=== PATIENT | male | born 1955 | race Caucasian/White ===

== ENCOUNTER 2017-05-07 15:48 | Emergency (ER) | payer OTHER ==
--- NOTE | 2017-05-07 17:07 | ED CLINICAL REPORT ---
Clinical Report - Physicians/Mid Levels [facility] [address] [place] [address] 05/07/2017 15:49 Patient: SILVESTRE ARELLANO V *This is a preliminary document and is subject to change Time Seen: 15:56. Arrived- By private vehicle. Historian- patient. HISTORY OF PRESENT ILLNESS Chief Complaint: VOMITING. Theresa Thomas MD
--- NOTE | 2017-05-07 17:07 | ED CLINICAL REPORT ---
Clinical Report - Physicians/Mid Levels [facility] [address] [address] 05/07/2017 15:49 Patient: SILVESTRE ARELLANO V *This is a preliminary document and is subject to change Time Seen: 15:56. Arrived- By private vehicle. Historian- patient. HISTORY OF PRESENT ILLNESS Chief Complaint: VOMITING. Theresa Thomas MD
--- NOTE | 2017-05-07 17:07 | ED NURSING NOTES ---
Clinical Report - Nurses [facility] [address] [place] [address] 05/07/2017 15:49 Patient: SILVESTRE ARELLANO V TRIAGE Triage time 16:04. Acuity: LEVEL 3. Chief Complaint: ABDOMINAL PAIN and NAUSEA and (chronic constipation. Seen at [facility] on sat, unable to drink whole thing. Had a small BM.). Alert. No acute distress. SEPSIS SCREEN: Sepsis Screen: negative. Negative (no infection suspected/documented). --16:11 Debi Alatorre R.N. 16:03 05/07/17. BP: 132/99. HR: 84. RR: 20. O2 saturation: 100%. Temp: 99.1 F. Pain level now: 02/06. --16:11 Debi Alatorre R.N. 16:03 05/07/17. BP: 132/99. HR: 84. RR: 20. O2 saturation: 100%. Temp: 99.1 F. Pain level now: 02/06. --16:11 Debi Alatorre R.N. Weight: 65.7 kg stated. Height/Length: 67 inches Per Patient. BMI: 22.7. --16:09 Dbei Alatorre R.N. Medications Baclofen 20 mg 4 times a day. Oxycodone-Acetaminophen Oral 30 mg, 6 daily. --16:06 Debi Alatorre R.N. Lisinopril Oral 5 mg, daily. --16:07 Debi Alatorre R.N. Atorvastatin Calcium Oral 10 mg, daily. --16:07 Debi Alatorre R.N. Allergies No Known Drug Allergy. --16:06 Debi Alatorre R.N. History Arrived by private vehicle. Historian: patient. Primary physician (gary). This started just prior to arrival. Onset. (3 - 4 days ago). He has had nausea and abdominal pain. The pain is described as located in the LLQ and lower abdomen and associated with nausea. No vomiting or diarrhea. 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 PAST MEDICAL HX: Immunizations: status is unknown. SOCIAL HX: Smoker- current status unknown. No alcohol use or drug use. FALL RISK ASSESSMENT: Fall risk assessment completed. No fall risk identified. NUTRITIONAL RISK ASSESSMENT: The nutritional risk assessment revealed no deficiencies. LEARNING NEEDS ASSESSMENT: The learning needs assessment revealed no barriers. FUNCTIONAL ASSESSMENT: Functional assessment performed: uses wheelchair, walker and cane. SKIN INTEGRITY ASSESSMENT: Skin integrity risk assessment completed. No skin integrity risk identified. --16:11 Debi Alatorre R.N. PROBLEMS: Abdominal Pain. Constipation. Pneumothorax x2. Broken neck/quadraplegic. --16:08 Debi Alatorre R.N. ADDITIONAL SURGERIES: Neck Surgery. --16:08 Debi Alatorre R.N. Interventions ID band on patient. To room. --16:11 Debi Alatorre R.N. PHYSICAL ASSESSMENT To room via wheelchair. Patient gowned. GENERAL / NEURO / PSYCH: Alert. Oriented X 4. Appears in pain and anxious. HEENT: Mucous membranes are pink. RESPIRATORY: Respirations not labored. CVS: Capillary refill less than 2 seconds. GI / : Abdominal tenderness in the left lower quadrant and lower abdomen. SKIN: Skin is warm and dry. --16:11 Debi Alatorre R.N. NURSING PROGRESS NOTES Patient gowned. Head of bed elevated. Two patient identifiers checked. Call light placed in reach. Side rails up x 2. Bed placed in lowest position. Brakes of bed on. Patient ready for evaluation. --16:11 Debi Alatorre R.N. DISPOSITION / DISCHARGE 17:10. The patient left the Emergency Department without being seen by a physician; (Eloped). The patient appears to be alert, oriented x4, coherent and in no acute distress. Gown found on bed. Patient paged once with no response. The patient left the Emergency Department via private vehicle. --21:35 Debi Alatorre R.N. 16:03 05/07/17. BP: 132/99. HR: 84. RR: 20. O2 saturation: 100%. Temp: 99.1 F. Pain level now: 10. --21:35 Debi Alatorre R.N. Locked/Released at 05/07/2017 21:37 by Debi Alatorre R.N.
--- NOTE | 2017-05-07 17:07 | ED NURSING NOTES ---
Clinical Report - Nurses [facility] [address] [place] [place] [address] 05/07/2017 15:49 Patient: SILVESTRE ARELLANO V TRIAGE Triage time 16:04. Acuity: LEVEL 3. Chief Complaint: ABDOMINAL PAIN and NAUSEA and (chronic constipation. Seen at [facility] on sat, unable to drink whole thing. Had a small BM.). Alert. No acute distress. SEPSIS SCREEN: Sepsis Screen: negative. Negative (no infection suspected/documented). --16:11 Debi Alatorre R.N. 16:03 05/07/17. BP: 132/99. HR: 84. RR: 20. O2 saturation: 100%. Temp: 99.1 F. Pain level now: 02/06. --16:11 Debi Alatorre R.N. 16:03 05/07/17. BP: 132/99. HR: 84. RR: 20. O2 saturation: 100%. Temp: 99.1 F. Pain level now: 02/06. --16:11 Debi Alatorre R.N. Weight: 65.7 kg stated. Height/Length: 67 inches Per Patient. BMI: 22.7. --16:09 Debi Alatorre R.N. Medications Baclofen 20 mg 4 times a day. Oxycodone-Acetaminophen Oral 30 mg, 6 daily. --16:06 Debi Alatorre R.N. Lisinopril Oral 5 mg, daily. --16:07 Debi Alatorre R.N. Atorvastatin Calcium Oral 10 mg, daily. --16:07 Debi Alatorre R.N. Allergies No Known Drug Allergy. --16:06 Debi Alatorre R.N. History Arrived by private vehicle. Historian: patient. Primary physician (gary). This started just prior to arrival. Onset. (3 - 4 days ago). He has had nausea and abdominal pain. The pain is described as located in the LLQ and lower abdomen and associated with nausea. No vomiting or diarrhea. 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 PAST MEDICAL HX: Immunizations: status is unknown. SOCIAL HX: Smoker- current status unknown. No alcohol use or drug use. FALL RISK ASSESSMENT: Fall risk assessment completed. No fall risk identified. NUTRITIONAL RISK ASSESSMENT: The nutritional risk assessment revealed no deficiencies. LEARNING NEEDS ASSESSMENT: The learning needs assessment revealed no barriers. FUNCTIONAL ASSESSMENT: Functional assessment performed: uses wheelchair, walker and cane. SKIN INTEGRITY ASSESSMENT: Skin integrity risk assessment completed. No skin integrity risk identified. --16:11 Debi Alatorre R.N. PROBLEMS: Abdominal Pain. Constipation. Pneumothorax x2. Broken neck/quadraplegic. --16:08 Debi Alatorre R.N. ADDITIONAL SURGERIES: Neck Surgery. --16:08 Debi Alatorre R.N. Interventions ID band on patient. To room. --16:11 Debi Alatorre R.N. PHYSICAL ASSESSMENT To room via wheelchair. Patient gowned. GENERAL / NEURO / PSYCH: Alert. Oriented X 4. Appears in pain and anxious. HEENT: Mucous membranes are pink. RESPIRATORY: Respirations not labored. CVS: Capillary refill less than 2 seconds. GI / : Abdominal tenderness in the left lower quadrant and lower abdomen. SKIN: Skin is warm and dry. --16:11 Debi Alatorre R.N. NURSING PROGRESS NOTES Patient gowned. Head of bed elevated. Two patient identifiers checked. Call light placed in reach. Side rails up x 2. Bed placed in lowest position. Brakes of bed on. Patient ready for evaluation. --16:11 Debi Alatorre R.N. DISPOSITION / DISCHARGE 17:10. The patient left the Emergency Department without being seen by a physician; (Eloped). The patient appears to be alert, oriented x4, coherent and in no acute distress. Gown found on bed. Patient paged once with no response. The patient left the Emergency Department via private vehicle. --21:35 Debi Alatorre R.N. 16:03 05/07/17. BP: 132/99. HR: 84. RR: 20. O2 saturation: 100%. Temp: 99.1 F. Pain level now: 10. --21:35 Debi Alatorre R.N. Locked/Released at 05/07/2017 21:37 by Debi Alatorre R.N.
--- NOTE | 2017-05-07 21:37 | ED MED RECONCILIATION SUMMARY ---
Patient: SILVESTRE ARELLANO V Medication Reconciliation Report [facility] VisitID: [id number] [address] [place] [address] 61y, M Registration Date/Time: 05/07/2017 Weight: 65.7 kg Height/Length: 67 in. BMI: 22.7 ALLERGIES: No Known Drug Allergy The patient's Home Medications are listed below: THE FOLLOWING MEDICATIONS NEED TO BE RECONCILED: Atorvastatin Calcium Oral 10 mg, daily Baclofen 20 mg 4 times a day Lisinopril Oral 5 mg, daily Oxycodone-Acetaminophen Oral 30 mg, 6 daily The source(s) of the original Home Medication information: Not obtained. The following Medications were given to the patient in the Emergency Department: None. The following Medications were prescribed to the patient: None.
--- NOTE | 2017-05-07 21:37 | ED MED RECONCILIATION SUMMARY ---
Patient: SILVESTRE ARELLANO V Medication Reconciliation Report [facility] VisitID: [id number] [address] [place] [address] 61y, M Registration Date/Time: 05/07/2017 Weight: 65.7 kg Height/Length: 67 in. BMI: 22.7 ALLERGIES: No Known Drug Allergy The patient's Home Medications are listed below: THE FOLLOWING MEDICATIONS NEED TO BE RECONCILED: Atorvastatin Calcium Oral 10 mg, daily Baclofen 20 mg 4 times a day Lisinopril Oral 5 mg, daily Oxycodone-Acetaminophen Oral 30 mg, 6 daily The source(s) of the original Home Medication information: Not obtained. The following Medications were given to the patient in the Emergency Department: None. The following Medications were prescribed to the patient: None.
--- NOTE | 2017-05-07 21:37 | ED MAR SUMMARY ---
..... Medication Administration Record [facility] [address] [place], [place] [id number] Patient: SILVESTRE ARELLANO V Visit ID: [id number] 61y, M Weight: 65.7 kg Height/Length: 67 in BMI: 22.7 ALLERGIES: No Known Drug Allergy
--- NOTE | 2017-05-07 21:37 | ED MAR SUMMARY ---
..... Medication Administration Record [facility] [address] [place] [place] [id number] Patient: SILVESTRE ARELLANO V Visit ID: [id number] 61y, M Weight: 65.7 kg Height/Length: 67 in BMI: 22.7 ALLERGIES: No Known Drug Allergy
== END 2017-05-07 17:10 | disposition left against medical advice (07) ==
LOC: ED SRH 15:48
DX: Z53.21 Procedure and treatment not carried out due to patient leaving prior to being seen by health care provider (principal)